=== PATIENT | male | born 2005 | race Two or more races ===

== ENCOUNTER → 2023-04-06 | Outpatient (CLI) | payer BC, OTHER | END | disposition home or self-care (01) | LOC: LAB 12:47 | PROVIDERS: ATTEND Family Medicine | DX: Z02.1 Encounter for pre-employment examination (principal) | CPT/HCPCS: 83655; 84630 ==

== ENCOUNTER → 2024-10-05 | Outpatient (CLI) | payer OTHER ==
[2024-10-09 12:07] LABS: Zinc 72 ug/dL (44-115)
[2024-10-09 15:07] LABS: Lead Blood Adult (>=17 Years) <1.0 ug/dL (0.0-3.4)
== END | disposition home or self-care (01) ==
LOC: LAB 13:48
PROVIDERS: ATTEND Family Medicine
DX: Z02.1 Encounter for pre-employment examination (principal); Z13.89 Encounter for screening for other disorder
CPT/HCPCS: 83655; 84630